=== PATIENT | female | born 1990 | race Caucasian/White ===

== ENCOUNTER 2018-09-21 21:49 | Observation (INO) ==
[2018-09-21] MEDS ORDERED: 0.9 % Sodium Chloride 1,000 ML IVC ONE ×2 (21:58→23:12)
[2018-09-21] MEDS ORDERED: Ibuprofen 800 MG TABLET PO ONE (22:00)
[2018-09-21] MEDS ORDERED: Isovue-370 500 ML BOTTLE IVP ONE (22:02)
--- NOTE | 2018-09-21 22:03 | Emergency Department Note ---
Overdose - [facility] Narrative Medical decision making narrative: Patient's evaluation in the emergency department demonstrates findings concerning for aspiration pneumonia versus bronchiolitis. Patient was noted to have an acute kidney injury, hyponatremia and hypokalemia. She was given IV fluids here in the ED, given potassium replacement and started on antibiotics with concern for aspiration pneumonia. The patient will be admitted for observation and further care. Patient family made aware and agrees to plan. No further questions or concerns noted. Patient accepted by Dr. To. - Lab Data Lab results reviewed: Yes I reviewed the patient's lab results. Result diagrams: 09/21/18 22:06 09/21/18 22:06 Lab Results 09/21/18 09/21/18 09/21/18 Range/Units 22:06 22:06 22:06 WBC 12.7 H (4.3-11.1) K/mcL RBC 5.64 H (3.82-4.97) M/mcL Hgb 15.9 H (11.5-15.4) g/dL Hct 45.5 H (35.3-44.9) % MCV 80.7 L (83.0-100.0) fL MCH 28.2 (28.0-33.3) pg MCHC 34.9 (31.6-35.5) g/dL RDW 13.1 (11.5-14.5) % Plt Count 229 (140-400) K/mcL MPV 10.9 (9.4-12.4) fL Immature Gran % 1.2 (0-4) % Seg Neutrophils % 83.3 % Lymphocytes % 5.9 % Monocytes % 9.1 % Eosinophils % 0.2 % Basophils % 0.3 % Neutrophils # 10.6 H (1.6-8.9) K/mcL Lymphocytes # 0.8 (0.6-4.6) K/mcL Monocytes # 1.2 (0.0-1.3) K/mcL Eosinophils # 0.0 (0.0-0.6) K/mcL Basophils # 0.0 (0.0-0.2) K/mcL Sodium 128 L (136-145) mEq/L Potassium 2.9 L (3.5-5.1) mEq/L Chloride 83 L (98-107) mEq/L Carbon Dioxide 29 (23-29) mEq/L BUN 20 (6-20) mg/dL Creatinine 1.27 H (0.60-1.20) mg/dL Est GFR ( Amer) 60 (> 60) Est GFR (Non-Af Amer) 49 L (> 60) BUN/Creatinine Ratio 16 (6-26) Glucose 108 H (70-105) mg/dL Calculated Osmolality 269 L (280-300) Lactic Acid 1.4 (0.5-2.2) mmol/L Calcium 9.5 (8.6-10.3) mg/dL Total Bilirubin 0.7 (0.3-1.0) mg/dL Direct Bilirubin 0.3 H (0.0-0.2) mg/dL Indirect Bilirubin 0.4 (0.0-1.2) mg/dL AST 60 H (13-39) Units/L ALT 71 H (7-52) Units/L Alkaline Phosphatase 83 (34-104) Units/L Troponin I < 0.03 (< 0.04) ng/mL Serum Total Protein 8.9 (6.4-8.9) g/dL Albumin 4.3 (3.5-5.7) g/dL Globulin 4.6 H (2.4-3.5) g/dL Albumin/Globulin Ratio 0.9 L (1.1-2.2) Lipase (11-82) Units/L Serum , Qual (Negative) Urine Color (Yellow) Urine Clarity (Clear) Urine pH (5.0-8.0) pH Units Ur Specific [place] (1.010-1.025) Urine Protein (Neg-Trace) mg/dL Urine Glucose (UA) (Normal) mg/dL Urine Ketones (Negative) mg/dL Urine Blood (Negative) Urine Nitrite (Negative) Urine Bilirubin (Negative) Urine Urobilinogen (Normal) mg/dL Ur Leukocyte Esterase (Negative) Urine Microscopic RBC (0-3) per hpf Urine Microscopic WBC (0-3) per hpf Ur Squamous Epith Cells (None-Few) per lpf Urine Bacteria (None-Few) per hpf Hyaline Casts (None-Few) per lpf Ur Culture Indicated? (NO) 09/21/18 09/21/18 09/22/18 Range/Units 22:06 22:18 00:33 WBC (4.3-11.1) K/mcL RBC (3.82-4.97) M/mcL Hgb (11.5-15.4) g/dL Hct (35.3-44.9) % MCV (83.0-100.0) fL MCH (28.0-33.3) pg MCHC (31.6-35.5) g/dL RDW (11.5-14.5) % Plt Count (140-400) K/mcL MPV (9.4-12.4) fL Immature Gran % (0-4) % Seg Neutrophils % % Lymphocytes % % Monocytes % % Eosinophils % % Basophils % % Neutrophils # (1.6-8.9) K/mcL Lymphocytes # (0.6-4.6) K/mcL Monocytes # (0.0-1.3) K/mcL Eosinophils # (0.0-0.6) K/mcL Basophils # (0.0-0.2) K/mcL Sodium (136-145) mEq/L Potassium (3.5-5.1) mEq/L Chloride (98-107) mEq/L Carbon Dioxide (23-29) mEq/L BUN (6-20) mg/dL Creatinine (0.60-1.20) mg/dL Est GFR ( Amer) (> 60) Est GFR (Non-Af Amer) (> 60) BUN/Creatinine Ratio (6-26) Glucose (70-105) mg/dL Calculated Osmolality (280-300) Lactic Acid (0.5-2.2) mmol/L Calcium (8.6-10.3) mg/dL Total Bilirubin (0.3-1.0) mg/dL Direct Bilirubin (0.0-0.2) mg/dL Indirect Bilirubin (0.0-1.2) mg/dL AST (13-39) Units/L ALT (7-52) Units/L Alkaline Phosphatase (34-104) Units/L Troponin I (< 0.04) ng/mL Serum Total Protein (6.4-8.9) g/dL Albumin (3.5-5.7) g/dL Globulin (2.4-3.5) g/dL Albumin/Globulin Ratio (1.1-2.2) Lipase 15 (11-82) Units/L Serum , Qual Negative (Negative) Urine Color Yellow (Yellow) Urine Clarity Clear (Clear) Urine pH 6.0 (5.0-8.0) pH Units Ur Specific [place] 1.028 H (1.010-1.025) Urine Protein 30 H (Neg-Trace) mg/dL Urine Glucose (UA) Normal (Normal) mg/dL Urine Ketones Trace H (Negative) mg/dL Urine Blood Trace H (Negative) Urine Nitrite Negative (Negative) Urine Bilirubin Negative (Negative) Urine Urobilinogen Normal (Normal) mg/dL Ur Leukocyte Esterase Negative (Negative) Urine Microscopic RBC 5-15 H (0-3) per hpf Urine Microscopic WBC 3-5 H (0-3) per hpf Ur Squamous Epith Cells Many H (None-Few) per lpf Urine Bacteria Few (None-Few) per hpf Hyaline Casts None Seen (None-Few) per lpf Ur Culture Indicated? NO (NO) - Radiology Data Radiology results reviewed: Yes I reviewed the patient's radiology results. Chest X-Ray 09/21/18 21:58 IMPRESSION: Subtle bilateral lung infiltrates on this portable study suspicious for pneumonia. A follow-up PA and lateral examination the chest is recommended. D/ / Rey Elias MD / Rey Elias MD Interpreting Provider: Rey Elias MD Chest/Abdomen/Pelvis CTA 09/21/18 22:02 IMPRESSION: Mostly dependent right lung and left lower lobe centrilobular nodules in a branching configuration with associated bronchial wall thickening, suggesting small airways disease/infectious bronchiolitis. Aspiration could be considered given history. Hyperenhancement of the adrenal glands and also probably the small bowel; findings could be related to hypoperfusion complex. Fatty infiltration of the liver. Splenomegaly. D/ / Ju Foster Cha, MD / Ju Foster Cha, MD Interpreting Provider: Ju Fsoter Cha, MD - EKG Data EKG attestation: Yes I reviewed and interpreted this EKG. EKG results narrative: Heart rate 159 beats for minute. Sinus tachycardia. No ST elevation but noted ST depression that is diffuse. Concern for demand ischemia. This is not present on previous EKG from every 2017. Overdose HPI - General Chief Complaint: ED Overdose Stated Complaint: OD Time Seen by Provider: 09/21/18 21:52 Source: patient, EMS Mode of arrival: EMS Limitations: no limitations Nursing Notes Reviewed: Yes Vital Signs Reviewed: Yes - History of Present Illness HPI Narrative: 28-year-old female with extensive history of IVDU, drug abuse and polysubstance, arrives to the emergency department after being found unresponsive. The patient was noted to have use clonazepam this morning. The patient suddenly used multiple doses of heroin. She was found unresponsive and administered Narcan by EMS. 4 mg intranasal. Patient quickly arose and woke up. She is alert and oriented upon arrival to the emergency department. Further questioning the patient was noted to express abdominal pain over the course the past few days and feel ill. She is noted to be tachycardic with a heart rate at 159. The patient denies any other complaints at this time. - Related Data Allergies Allergy/AdvReac Type Severity Reaction Status Date / Time Amoxicillin [From Augmentin] AdvReac Seizure Verified 09/05/17 17:21 clavulanic acid AdvReac Seizure Verified 09/05/17 17:21 [From Augmentin] All systems ED: reviewed and negative except as stated. Constitutional: Reports: fever, chills, weakness ENT ED: Denies: dysphagia Cardiovascular: Denies: chest pain Respiratory: Denies: dyspnea Gastrointestinal: Reports: abdominal pain, nausea. Denies: vomiting, diarrhea, constipation, hematemesis, melena, hematochezia Genitourinary: Denies: urgency, dysuria, discharge Musculoskeletal: Denies: back pain, neck pain Integumentary: Reports: lesions. Denies: rash Neurological: Denies: headache Past Medical History - Past Medical History Attestation: Yes The following information was validated with the patient. 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 - Social History Smoking Status: Current every day smoker Smokeless Tobacco Status: No Alcohol use: Reports: none Drug use: Reports: marijuana, methamphetamine, IV Drug Use, prescription drug abuse, other Physical Exam - General Limitations: no limitations General appearance: alert, in no apparent distress - Head Head exam: atraumatic, normocephalic, normal inspection - Eye Eye exam: Present: normal appearance, PERRL, EOMI - ENT ENT exam: normal exam, normal oropharynx, mucous membranes moist - Neck Neck exam: Present: normal inspection, full ROM, trachea midline - Chest Chest inspection: Present: normal inspection, symmetric chest wall rise - Respiratory Respiratory exam: Present: normal lung sounds bilaterally - Cardiovascular Cardiovascular exam: Present: normal rhythm, tachycardia, normal heart sounds - Abdominal Exam Abdominal exam: Present: soft, tenderness (diffuse). Absent: Non-Tender, distention, guarding, rebound, rigidity - Extremities Exam Extremities exam: Present: normal inspection, full ROM. Absent: tenderness, pedal edema - Neurological Exam Neurological exam: Present: alert, oriented X3 - Skin Skin exam: Present: warm, dry, other (small lesions on bilateral UE) Course Vital Signs Temperature 102.7 F H 09/21/18 21:51 Pulse Rate 164 09/21/18 21:51 Respiratory Rate 20 09/21/18 21:51 Blood Pressure 103/76 09/21/18 21:51 O2 Sat by Pulse Oximetry 98 09/21/18 21:51 Temperature 99.8 F H 09/21/18 23:47 Pulse Rate 146 09/21/18 23:21 Respiratory Rate 18 09/21/18 23:21 Blood Pressure 109/86 09/21/18 23:21 O2 Sat by Pulse Oximetry 94 09/21/18 23:21 Oxygen Delivery Oxygen Delivery Room Air Disposition Clinical Impression: Febrile illness, Acute kidney injury, Hypokalemia, Hyponatremia Heroin overdose Qualifiers: Encounter type: initial encounter Injury intent: accidental or unintentional Qualified Code(s): T40.1X1A - Poisoning by heroin, accidental (unintentional), initial encounter Disposition: Admitted As Inpatient Condition: Serious Referrals: NONE,PCP [Primary Care Provider] - Forms: ED Satisfaction Letter Time of Disposition: 00:54
--- NOTE | 2018-09-21 22:09 | Emergency Department Note ---
Disposition Clinical Impression: Heroin overdose, Febrile illness, Acute kidney injury, Hypokalemia, Hyponatremia Disposition: Admitted As Inpatient Condition: Serious Forms: ED Satisfaction Letter General Adult HPI - General Chief complaint: ED Overdose Stated complaint: OD Time Seen by Provider: 09/21/18 21:52 Source: patient, EMS Mode of arrival: EMS Limitations: no limitations - History of Present Illness Pain Scale: 0 - Related Data Allergies Allergy/AdvReac Type Severity Reaction Status Date / Time Amoxicillin [From Augmentin] AdvReac Seizure Verified 09/05/17 17:21 clavulanic acid AdvReac Seizure Verified 09/05/17 17:21 [From Augmentin] Constitutional: Reports: fever, chills, weakness ENT ED: Denies: dysphagia Cardiovascular: Denies: chest pain Respiratory: Denies: dyspnea Gastrointestinal: Reports: abdominal pain, nausea. Denies: vomiting, diarrhea, constipation, hematemesis, melena, hematochezia Genitourinary: Denies: urgency, dysuria, discharge Musculoskeletal: Denies: back pain, neck pain Integumentary: Reports: lesions. 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 - Social History Smoking Status: Current every day smoker Smokeless Tobacco Status: No Alcohol use: Reports: none Drug use: Reports: marijuana, methamphetamine, IV Drug Use, prescription drug abuse, other Physical Exam - General Limitations: no limitations General appearance: alert, in no apparent distress Course Vital Signs Temperature 102.7 F H 09/21/18 21:51 Pulse Rate 164 09/21/18 21:51 Respiratory Rate 20 09/21/18 21:51 Blood Pressure 103/76 09/21/18 21:51 O2 Sat by Pulse Oximetry 98 09/21/18 21:51 Temperature 99.8 F H 09/21/18 23:47 Pulse Rate 146 09/21/18 23:21 Respiratory Rate 18 09/21/18 23:21 Blood Pressure 109/86 09/21/18 23:21 O2 Sat by Pulse Oximetry 94 09/21/18 23:21 Oxygen Delivery Oxygen Delivery Room Air Medical Decision Making - MDM Narrative Medical decision making narrative: Patient will be admitted. CTs show possible bronchiolitis versus aspiration p neumonia. We have ordered IV antibiotics. She is hyponatremic and hypokalemic with an acute kidney injury. We have ordered IV fluids. She will be admitted. - Medical Records Medical records reviewed: Yes I reviewed the patient's medical records. - Lab Data Lab results reviewed: Yes I reviewed the patient's lab results. Result diagrams: 09/21/18 22:06 09/21/18 22:06 Lab Results 09/21/18 09/21/18 09/21/18 Range/Units 22:06 22:06 22:06 WBC 12.7 H (4.3-11.1) K/mcL RBC 5.64 H (3.82-4.97) M/mcL Hgb 15.9 H (11.5-15.4) g/dL Hct 45.5 H (35.3-44.9) % MCV 80.7 L (83.0-100.0) fL MCH 28.2 (28.0-33.3) pg MCHC 34.9 (31.6-35.5) g/dL RDW 13.1 (11.5-14.5) % Plt Count 229 (140-400) K/mcL MPV 10.9 (9.4-12.4) fL Immature Gran % 1.2 (0-4) % Seg Neutrophils % 83.3 % Lymphocytes % 5.9 % Monocytes % 9.1 % Eosinophils % 0.2 % Basophils % 0.3 % Neutrophils # 10.6 H (1.6-8.9) K/mcL Lymphocytes # 0.8 (0.6-4.6) K/mcL Monocytes # 1.2 (0.0-1.3) K/mcL Eosinophils # 0.0 (0.0-0.6) K/mcL Basophils # 0.0 (0.0-0.2) K/mcL Sodium 128 L (136-145) mEq/L Potassium 2.9 L (3.5-5.1) mEq/L Chloride 83 L (98-107) mEq/L Carbon Dioxide 29 (23-29) mEq/L BUN 20 (6-20) mg/dL Creatinine 1.27 H (0.60-1.20) mg/dL Est GFR ( Amer) 60 (> 60) Est GFR (Non-Af Amer) 49 L (> 60) BUN/Creatinine Ratio 16 (6-26) Glucose 108 H (70-105) mg/dL Calculated Osmolality 269 L (280-300) Lactic Acid 1.4 (0.5-2.2) mmol/L Calcium 9.5 (8.6-10.3) mg/dL Total Bilirubin 0.7 (0.3-1.0) mg/dL Direct Bilirubin 0.3 H (0.0-0.2) mg/dL Indirect Bilirubin 0.4 (0.0-1.2) mg/dL AST 60 H (13-39) Units/L ALT 71 H (7-52) Units/L Alkaline Phosphatase 83 (34-104) Units/L Troponin I < 0.03 (< 0.04) ng/mL Serum Total Protein 8.9 (6.4-8.9) g/dL Albumin 4.3 (3.5-5.7) g/dL Globulin 4.6 H (2.4-3.5) g/dL Albumin/Globulin Ratio 0.9 L (1.1-2.2) Lipase (11-82) Units/L Serum , Qual (Negative) 09/21/18 09/21/18 Range/Units 22:06 22:18 WBC (4.3-11.1) K/mcL RBC (3.82-4.97) M/mcL Hgb (11.5-15.4) g/dL Hct (35.3-44.9) % MCV (83.0-100.0) fL MCH (28.0-33.3) pg MCHC (31.6-35.5) g/dL RDW (11.5-14.5) % Plt Count (140-400) K/mcL MPV (9.4-12.4) fL Immature Gran % (0-4) % Seg Neutrophils % % Lymphocytes % % Monocytes % % Eosinophils % % Basophils % % Neutrophils # (1.6-8.9) K/mcL Lymphocytes # (0.6-4.6) K/mcL Monocytes # (0.0-1.3) K/mcL Eosinophils # (0.0-0.6) K/mcL Basophils # (0.0-0.2) K/mcL Sodium (136-145) mEq/L Potassium (3.5-5.1) mEq/L Chloride (98-107) mEq/L Carbon Dioxide (23-29) mEq/L BUN (6-20) mg/dL Creatinine (0.60-1.20) mg/dL Est GFR ( Amer) (> 60) Est GFR (Non-Af Amer) (> 60) BUN/Creatinine Ratio (6-26) Glucose (70-105) mg/dL Calculated Osmolality (280-300) Lactic Acid (0.5-2.2) mmol/L Calcium (8.6-10.3) mg/dL Total Bilirubin (0.3-1.0) mg/dL Direct Bilirubin (0.0-0.2) mg/dL Indirect Bilirubin (0.0-1.2) mg/dL AST (13-39) Units/L ALT (7-52) Units/L Alkaline Phosphatase (34-104) Units/L Troponin I (< 0.04) ng/mL Serum Total Protein (6.4-8.9) g/dL Albumin (3.5-5.7) g/dL Globulin (2.4-3.5) g/dL Albumin/Globulin Ratio (1.1-2.2) Lipase 15 (11-82) Units/L Serum , Qual Negative (Negative) - Radiology Data Radiology results reviewed: Yes I reviewed the patient's radiology results. Critical Care Time Critical Care Time: Yes Total Critical Care Time: 30 Attestation: Critical care time of 30 minutes spent in medical management of multiple medical problems with overdose of heroin as well as acute kidney injury as well as poss ible pneumonia from aspiration versus a bronchiolitis. Attestation Statement - Attestation Attestation: I examined this patient and my medical decision-making was reviewed with the Resident Physician. I agree with the documented findings, disposition and treatment plan as described except to the extent set forth below. 28yo F here for overdose. OD on heroin earlier. squad gave intranasal narcan. Patient woke up after the Narcan. However, she was found to have a fever of 102. Patient also took 3 Klonopin tablets this morning. She does have a long history of opiate addiction. She has got multiple track fuentes in the left arm specifically to the left antecubital region. Concerns are received with the fevers so we need to work her up for possible septic emboli or endocarditis or any other straightforward infection.
[2018-09-21 22:26] LABS: Basophils % 0.3 %; Eosinophils % 0.2 %; Hematocrit 45.5 % (35.3-44.9); Hemoglobin 15.9 g/dL (11.5-15.4); Immature Granulocytes % 1.2 % (0-4); Lymphocytes # 0.8 K/mcL (0.6-4.6); Lymphocytes % 5.9 %; Mean Corpuscular HGB Conc 34.9 g/dL (31.6-35.5); Mean Corpuscular Hemoglobin 28.2 pg (28.0-33.3); Mean Corpuscular Volume 80.7 fL (83.0-100.0); Mean Platelet Volume 10.9 fL (9.4-12.4); Monocytes # 1.2 K/mcL (0.0-1.3); Monocytes % 9.1 %; Neutrophils # 10.6 K/mcL (1.6-8.9); Platelet Count 229 K/mcL (140-400); Red Blood Count 5.64 M/mcL (3.82-4.97); Red Cell Distribution Width 13.1 % (11.5-14.5); Segmented Neutrophils % 83.3 %
[2018-09-21 22:46] LABS: Alanine Aminotransferase 71 Units/L (7-52); Albumin 4.3 g/dL (3.5-5.7); Albumin/Globulin Ratio 0.9 (1.1-2.2); Alkaline Phosphatase 83 Units/L (34-104); Aspartate Amino Transferase 60 Units/L (13-39); BUN/Creatinine Ratio 16 (6-26); Bilirubin,Direct 0.3 mg/dL (0.0-0.2); Bilirubin,Indirect 0.4 mg/dL (0.0-1.2); Bilirubin,Total 0.7 mg/dL (0.3-1.0); Blood Urea Nitrogen 20 mg/dL (6-20); Calcium 9.5 mg/dL (8.6-10.3); Carbon Dioxide 29 mEq/L (23-29); Chloride 83 mEq/L (98-107); Globulin 4.6 g/dL (2.4-3.5); Glucose 108 mg/dL (70-105); Osmolality,Calculated 269 (280-300); Potassium 2.9 mEq/L (3.5-5.1); Sodium 128 mEq/L (136-145); Total Protein 8.9 g/dL (6.4-8.9); Troponin I < 0.03 ng/mL (< 0.04); eGFR For Non-African Americans 49 (> 60)
[2018-09-22] MEDS ORDERED: Cefepime HCl 1,000 MG in Water for inj. (sterile) 20 ML 10 ML IVP STA (00:13)
[2018-09-22 00:44] LABS: Bilirubin,Urine Negative (Negative); Blood,Urine Trace (Negative); Clarity,Urine Clear (Clear); Color,Urine Yellow (Yellow); Glucose,Urine (UA) Normal (Normal); Ketones,Urine Trace mg/dL (Negative); Leukocyte Esterase,Urine Negative (Negative); Nitrite,Urine Negative (Negative); Protein,Urine 30 mg/dL (Neg-Trace); Specific Gravity,Urine 1.028 (1.010-1.025); Urobilinogen,Urine Normal (Normal)
[2018-09-22 00:46] LABS: Bacteria,Urine Few per hpf (None-Few); Hyaline Casts,Urine None Seen per lpf (None-Few); Squamous Epithelial Cell,Urine Many per lpf (None-Few)
[2018-09-22] MEDS ORDERED: Naloxone 0.4 MG/ML INJ IVP PRN (01:43)
--- NOTE | 2018-09-22 01:45 | Internal Med History&Physical ---
<Ivan Shen S - Last Filed: 09/22/18 04:14> Date of Encounter: 09/22/18 Time of Encounter: 01:44 Internal Medicine - H&P: HPI Chief complaint: overdose on heroin Admitted From: Home Plans for Post Hospital Care: Home History of present illness: Ms. Chavez is a 28 year old female with PMH of IVDU. She overdosed this morning on klonopin and heroin. She states she took 3 klonopins and a "few balls." She was found down by her mom who called EMS. She was given narcan and brought to the ER. She has also been having increasing cough, fevers and chills x 3 weeks. She states she just hasn't been feeling right. She denies any chest pain but has c/o headaches and palpiltations. She can "feel her heart beating" in her chest. She does feel feverish but hasn't taken her temperature. She denies any saddle anesthesia, loss of bowel and bladder, or spinal pain. She denies any injection into the toe webbing. She uses her left antecubital fossa. On evaluation in the ER the pt was found to have Subtle bilateral lung infiltrates on this portable study suspicious for pneumonia on CXR and CT scan showed Mostly dependent right lung and left lower lobe centrilobular nodules in a branching configuration with associated bronchial wall thickening, suggesting small airways disease/infectious bronchiolitis. She was also found to be febrile, with tacycardia and an elevated white count. She was given a dose of vancomycin and cefepime in the ER. Dr Enamorado is the accepting physician. Past Med Surg Social Fam HX - Past Medical History Medical history: hepatitis Psychiatric history: anxiety, depression, panic disorder - Social History Smoking Status: Current every day smoker Smokeless Tobacco Status: No Alcohol use: none Drug use: marijuana, methamphetamine, IV Drug Use, prescription drug abuse, other Internal Medicine - H&P: Meds Allergy/AdvReac Type Severity Reaction Status Date / Time Amoxicillin [From Augmentin] AdvReac Seizure Verified 09/05/17 17:21 clavulanic acid AdvReac Seizure Verified 09/05/17 17:21 [From Augmentin] All Systems PM: A 10-system review of systems was performed and is negative for pertinent findings except as documented above in the HPI. - Constitutional Constitutional: chills, fatigue, fever(s) - EENT Eyes: no blurry vision, no change in vision Nose, mouth and throat: no dental pain, no mouth lesions - Cardiovascular Cardiovascular ROS IM: palpitations, no chest pain, no dyspnea, no dyspnea on exertion - Respiratory Respiratory: cough, chest congestion, excessive phlegm production, no hemoptysis - Gastrointestinal Gastrointestinal: abdominal pain, nausea, vomiting, no diarrhea - Musculoskeletal Musculoskeletal ROS IM: no arthralgias - Integumentary Integumentary IM: sores - Neurological Neurological ROS: weakness - Endocrine Endocrine IM: fatigue - Hematologic/Lymphatic Hematologic/Lymphatic: no easy bleeding, no easy bruising - Constitutional Vitals: Temp Pulse Resp BP Pulse Ox 99.8 F H 146 18 109/86 94 09/21/18 23:47 09/21/18 23:21 09/21/18 23:21 09/21/18 23:21 09/21/18 23:21 General appearance: Present: cooperative, A&O X 3, no acute distress Exam: x - Head Head exam: Present: atraumatic, normocephalic - Eye Eye exam: Present: sclera anicteric - ENT ENT exam: Present: mucous membranes moist - Expanded ENT Exam Mouth exam: Present: normal external inspection, tongue normal. Absent: drooling Teeth exam: Present: fractured tooth # (left molar) - Neck Neck exam general surgery: Present: trachea midline - Respiratory Respiratory exam: Present: decreased breath sounds, rhonchi. Absent: accessory muscle use, rales, respiratory distress, stridor, wheezes, tachypnea - Expanded Respiratory Exam Location: decreased breath sounds: Left, Right, Upper, Lower, rhonchi: Left, Right, Upper, Lower - GI/Abdominal GI/Abdominal exam: Present: soft, no peritoneal signs. Absent: tenderness - Extremities Exam Extremities exam: Present: normal capillary refill, normal inspection, warm. Absent: pedal edema, tenderness Additional comments: no signs of janeway lesions, osler nodules, splinter hemorrhages - Back Exam Back exam: Present: normal inspection. Absent: rash noted, tenderness - Neurological Exam Neurological exam: Present: alert, oriented X3, no focal deficits - Psychiatric Psychiatric exam: Present: anxious - Skin Skin exam: Present: dry, warm Additional comments: left antecubital fossa has large area of scar tissue, track fuentes - no tract fuentes in between the toes Internal Med - H&P Results - Labs CBC & Chem 7: 09/22/18 03:34 09/21/18 22:06 Labs: Short CBC 09/21/18 Range/Units 22:06 WBC 12.7 H (4.3-11.1) K/mcL Hgb 15.9 H (11.5-15.4) g/dL Hct 45.5 H (35.3-44.9) % Plt Count 229 (140-400) K/mcL Neutrophils # 10.6 H (1.6-8.9) K/mcL BMP 09/21/18 22:06 Sodium 128 L Potassium 2.9 L Chloride 83 L Carbon Dioxide 29 BUN 20 Creatinine 1.27 H Glucose 108 H Calcium 9.5 Cardiac Enzymes 09/21/18 Range/Units 22:06 Troponin I < 0.03 (< 0.04) ng/mL Liver Function 09/21/18 Range/Units 22:06 Total Bilirubin 0.7 (0.3-1.0) mg/dL Direct Bilirubin 0.3 H (0.0-0.2) mg/dL AST 60 H (13-39) Units/L ALT 71 H (7-52) Units/L Alkaline Phosphatase 83 (34-104) Units/L Albumin 4.3 (3.5-5.7) g/dL Urine 09/22/18 Range/Units 00:33 Urine Color Yellow (Yellow) Urine Clarity Clear (Clear) Urine pH 6.0 (5.0-8.0) pH Units Ur Specific [place] 1.028 H (1.010-1.025) Urine Protein 30 H (Neg-Trace) mg/dL Urine Glucose (UA) Normal (Normal) mg/dL - Impressions ITS Impressions Chest X-Ray 09/21/18 21:58 IMPRESSION: Subtle bilateral lung infiltrates on this portable study suspicious for pneumonia. A follow-up PA and lateral examination the chest is recommended. D/ / Rey Elias MD / Rey Elias MD Interpreting Provider: Rey Elias MD Chest/Abdomen/Pelvis CTA 09/21/18 22:02 IMPRESSION: Mostly dependent right lung and left lower lobe centrilobular nodules in a branching configuration with associated bronchial wall thickening, suggesting small airways disease/infectious bronchiolitis. Aspiration could be considered given history. Hyperenhancement of the adrenal glands and also probably the small bowel; findings could be related to hypoperfusion complex. Fatty infiltration of the liver. Splenomegaly. D/ / Ju Foster Cha, MD / Ju Foster Cha, MD Interpreting Provider: Ju Foster Cha, MD - Assessment and plan (1) Sepsis Current Visit: Yes Status: Acute Assessment and plan: Pt with hx of IVDU and increasing cough, fevers/chills x 3 weeks - overdosed this afternoon and was brought to ER via EMS - narcan administered en route - pt given dose of cefepime and vancomycin in the ER Meets SIRS criteria for HR 146, RR 22, WBC 12.7 and t max of 102.7 - source of infxn likely aspiration pneumonia vs infectious bronchiolitis Pt has pre-disposing factors that make her suspectible for infective endocarditis, including IVDU. She is febrile. - as of now, she only meets 2 minor criteria for Morelos's criteria for IE - no Osler's nodules, splinter hemorrhages or Janeway lesions noted CXR in ER showed bilateral lung infiltrates on this portable study suspicious for pneumonia. CT scan in the ER showed - right lung and left lower lobe centrilobular nodules in a branching configuration with associated bronchial wall thickening, suggesting small airways disease/infectious bronchiolitis. - Aspiration could be considered given history. Pt shoots up into left AC, the area does have an area of scar tissue from chronic IVDU however appears noninfected, no flucuance can be palpated - checked toe webbing for any infected tract fuentes, none seen Pt has chipped tooth (molar) on the left side, does not appear to be draining or infected Plan: - blood cx pending - continue abx to cover for aspiration pneumonia/CAP vs infectious endocarditis vancomycin to cover for possible MRSA, zosyn to cover anaerobes - ECHO pending - continue telemetry monitoring - cbc/bmp in AM - duonebs Qualifiers: Sepsis type: sepsis due to unspecified organism Qualified Code(s): A41.9 - Sepsis, unspecified organism (2) IVDU (intravenous drug user) Current Visit: Yes Status: Acute Assessment and plan: Chronic, last day of use this AM. - SW consulted (3) Tobacco abuse Current Visit: Yes Status: Acute Assessment and plan: Counsled. NRT ordered. (4) Heroin overdose Current Visit: Yes Status: Acute Assessment and plan: Pt has chronic hx of IVDU. Qualifiers: Encounter type: initial encounter Injury intent: accidental or unintentional Qualified Code(s): T40.1X1A - Poisoning by heroin, accidental (unintentional), initial encounter (5) Acute kidney injury Current Visit: Yes Status: Acute Assessment and plan: Creatinine 1.27 on admission, last creatinine was 0.66 (08/2017) - likely pre-renal secondary to hypovolemia/dehydration Plan: - continue IVF - avoid nephrotoxins - monitor bmp (6) Hypokalemia Current Visit: Yes Status: Acute Assessment and plan: Likely secondary to vomiting - potassium 2.9 on admission - replaced in ER - monitor electrolyes (7) Hyponatremia Current Visit: Yes Status: Acute Assessment and plan: Sodium 128 - likely secondary to vomiting, dehydration, poor PO intake - pt receiving 2L of 0.9% NS bolus in the ER - monitor electrolyes (8) DVT prophylaxis Current Visit: Yes Status: Acute Assessment and plan: sq heparin (9) Pneumonia Current Visit: Yes Status: Acute Assessment and plan: See plan as above for sepsis. Qualifiers: Pneumonia type: due to unspecified organism Laterality: unspecified lat erality Lung location: unspecified part of lung Qualified Code(s): J18.9 - Pneumonia, unspecified organism - Time Spent With Patient Total time spent is greater than 50% in coordination of care (as documented) at patient's floor/unit and/or counseling patient: less than 15 minutes <Glenn To - Last Filed: 09/22/18 05:22> Date of Encounter: 09/22/18 Internal Medicine - H&P: HPI History of present illness: Ms. Chavez is a 28 year old female All Systems PM: A 10-system review of systems was performed and is negative for pertinent findings except as documented above in the HPI. - Constitutional Vitals: Temp Pulse Resp BP Pulse Ox 99.8 F H 146 18 113/92 94 09/21/18 23:47 09/21/18 23:21 09/22/18 02:28 09/22/18 02:28 09/21/18 23:21 Internal Med - H&P Results - Labs CBC & Chem 7: 09/22/18 03:34 09/22/18 03:34 Labs: Short CBC 09/21/18 09/22/18 Range/Units 22:06 03:34 WBC 12.7 H 11.5 H (4.3-11.1) K/mcL Hgb 15.9 H 14.2 D (11.5-15.4) g/dL Hct 45.5 H 42.2 (35.3-44.9) % Plt Count 229 181 (140-400) K/mcL Neutrophils # 10.6 H (1.6-8.9) K/mcL BMP 09/21/18 09/22/18 22:06 03:34 Sodium 128 L 135 L Potassium 2.9 L 3.9 D Chloride 83 L 94 L Carbon Dioxide 29 32 H BUN 20 16 Creatinine 1.27 H 0.94 Glucose 108 H 114 H Calcium 9.5 8.7 Cardiac Enzymes 09/21/18 Range/Units 22:06 Troponin I < 0.03 (< 0.04) ng/mL Liver Function 09/21/18 Range/Units 22:06 Total Bilirubin 0.7 (0.3-1.0) mg/dL Direct Bilirubin 0.3 H (0.0-0.2) mg/dL AST 60 H (13-39) Units/L ALT 71 H (7-52) Units/L Alkaline Phosphatase 83 (34-104) Units/L Albumin 4.3 (3.5-5.7) g/dL Urine 09/22/18 Range/Units 00:33 Urine Color Yellow (Yellow) Urine Clarity Clear (Clear) Urine pH 6.0 (5.0-8.0) pH Units Ur Specific [place] 1.028 H (1.010-1.025) Urine Protein 30 H (Neg-Trace) mg/dL Urine Glucose (UA) Normal (Normal) mg/dL - Impressions ITS Impressions Chest X-Ray 09/21/18 21:58 IMPRESSION: Subtle bilateral lung infiltrates on this portable study suspicious for pneumonia. A follow-up PA and lateral examination the chest is recommended. D/ / Rey Elias MD / Rey Elias MD Interpreting Provider: Rey Elias MD Chest/Abdomen/Pelvis CTA 09/21/18 22:02 IMPRESSION: Mostly dependent right lung and left lower lobe centrilobular nodules in a branching configuration with associated bronchial wall thickening, suggesting small airways disease/infectious bronchiolitis. Aspiration could be considered given history. Hyperenhancement of the adrenal glands and also probably the small bowel; findings could be related to hypoperfusion complex. Fatty infiltration of the liver. Splenomegaly. D/ / Ju Foster Cha, MD / Ju Foster Cha, MD Interpreting Provider: Ju Foster Cha, MD - Time Spent With Patient Total time spent is greater than 50% in coordination of care (as documented) at patient's floor/unit and/or counseling patient: - Attending Attestation I saw and evaluated the patient. I reviewed the residents note, performed my own physical examination and agree with findings and plan as documented in the residents note. Patient seen and examined on 09/22/18. Patient presented to the emergency room unresponsive found by her mother after apparently overdosing on heroin and other drugs. Patient was resuscitated in the field and evaluated in the emergency room. Urine drug screen not completed in the emergency room as patient admitted to heroin and benzo use. Further blood work showed electrolyte abnormalities including hypon atremia hypokalemia and an iron deficiency. Patient suspected to have aspiration pneumonia as well as likely endocarditis possibly. Upon arrival to the medical floor, patient decided she wanted to leave AGAINST MEDICAL ADVICE. I came to the patient's room and discussed with her that she has multiple medical problems, any of which could be potentially lethal. She stated that she does want to go home, sleep in her own bed and take a shower. She then said she planned on coming back later in the morning. She was not concerned about the possibility of , because "I am only going to be gone a couple of hours." I then stated to her that she could take a shower here in the hospital, but she found this suggestion unfavorable because she does not like the kind of shampoo that would be available to her. She signed AMA paperwork and left the hospital prior to my physical exam. She was oriented, and capable of making medical decisions. Patient's mother was at bedside, and while she did not agree with the patient leaving the hospital she accepted her decision. Nursing removed IV access prior to her departure.
[2018-09-22] MEDS ORDERED: 0.9 % Sodium Chloride 1,000 ML IVC SCH (02:00)
[2018-09-22 02:30] VITALS: BP 113/92
[2018-09-22 03:56] LABS: Hematocrit 42.2 % (35.3-44.9); Hemoglobin 14.2 g/dL (11.5-15.4); Mean Corpuscular HGB Conc 33.6 g/dL (31.6-35.5); Mean Corpuscular Hemoglobin 28.6 pg (28.0-33.3); Mean Corpuscular Volume 85.1 fL (83.0-100.0); Mean Platelet Volume 10.5 fL (9.4-12.4); Platelet Count 181 K/mcL (140-400); Red Blood Count 4.96 M/mcL (3.82-4.97); Red Cell Distribution Width 13.4 % (11.5-14.5)
[2018-09-22] MEDS ORDERED: Ipratropium/Albuterol Neb 3 ML IH SCH (04:00)
[2018-09-22] MEDS ORDERED: Aminoglycoside Consult 1 EACH MC ONE (04:09)
[2018-09-22 04:23] LABS: BUN/Creatinine Ratio 17 (6-26); Blood Urea Nitrogen 16 mg/dL (6-20); Calcium 8.7 mg/dL (8.6-10.3); Carbon Dioxide 32 mEq/L (23-29); Chloride 94 mEq/L (98-107); Glucose 114 mg/dL (70-105); Osmolality,Calculated 282 (280-300); Potassium 3.9 mEq/L (3.5-5.1); Sodium 135 mEq/L (136-145); eGFR For Non-African Americans > 60 (> 60)
[2018-09-22] MEDS ORDERED: *HR* Heparin 5,000 UNIT/ML VIAL SQ SCH (06:00)
[2018-09-22] MEDS ORDERED: Piperacillin/Tazobactam 3.375 GM in 0.9 % Sodium Chloride Mini Bag 100 ML IVPB SCH (08:00)
[2018-09-22] MEDS ORDERED: Nicotine 7 MG PATCH.TD24 TD SCH (09:00)
--- NOTE | 2018-09-22 20:51 | Electrocardiograph Report ---
[address] [place], [place] [address] Test Date: 2018-09-21 Pat Name: Ladonna Chavez Department: [id number] Room: 2A71 Gender: F Rails Developer: : 1990 Requested By: Juan Shook Order Number: [id number] Reading MD: Naveen Quintero Measurements Intervals [place] Rate: 159 P: 73 NC: 76 QRS: 113 QRSD: 83 T: 56 QT: 343 QTc: 558 Interpretive Statements Limb leads reversal Sinus tachycardia Borderline repolarization abnormality Prolonged QT interval Electronically Signed On 09-22-2018 20:49:21 EST by Naveen Quintero
== END 2018-09-22 04:10 | disposition left against medical advice (07) ==
LOC: EMEROOARM 21:49 → 2ANU 21:49
PROVIDERS: ADMIT Family Medicine; ATTEND Family Medicine

== ENCOUNTER 2019-01-18 14:34 | Inpatient (IN) ==
[~2019-01-18 14:34] MED LIST: Aminoglycoside Consult 1 EACH MC ONE
[2019-01-18] MEDS ORDERED: 0.9 % Sodium Chloride 1,000 ML IVC ONE ×2 (15:02→16:17)
--- NOTE | 2019-01-18 15:27 | Emergency Department Note ---
Disposition Clinical Impression: Cellulitis Qualifiers: Site of cellulitis: extremity Site of cellulitis of extremity: axilla Laterality: right Qualified Code(s): L03.111 - Cellulitis of right axilla Sepsis Qualifiers: Sepsis type: sepsis due to unspecified organism Qualified Code(s): A41.9 - Sepsis, unspecified organism Disposition: Admitted As Inpatient Referrals: NONE,PCP [Primary Care Provider] - Forms: ED Satisfaction Letter Time of Disposition: 16:52 General Adult HPI - General Chief complaint: ED Skin/Abscess/Foreign Body Stated complaint: "Cellulitis"/abscess under arm Time Seen by Provider: 01/18/19 14:48 Source: patient, family Mode of arrival: ambulatory Limitations: no limitations Nursing Notes Reviewed: Yes Vital Signs Reviewed: Yes - History of Present Illness HPI Narrative: 28 yo female with history of IV drug abuse presents the emergency department with cellulitis in her right armpit. Patient states the last time she used IV drugs for several weeks ago. She noticed 3 days ago that she had a bump in her right armpit and thought it was an ingrown hair and has been trying to drain the area since then. Today the area became exquisitely more tender and red and she came to the emergency department for further evaluation. She has had cellulitis before and has needed antibiotics. She also complains of some shortness of breath and wheezing which has been going on for several months. She otherwise has no acute complaints at this time and denies chest pain, abdominal pain, nausea and vomiting, diarrhea, urinary tract symptoms. Pain Scale: 8 - Related Data Allergies Allergy/AdvReac Type Severity Reaction Status Date / Time Amoxicillin [From Augmentin] AdvReac Seizure Verified 09/05/17 17:21 clavulanic acid AdvReac Seizure Verified 09/05/17 17:21 [From Augmentin] All systems ED: reviewed and negative except as stated. Review of Systems: As Per HPI Constitutional: Reports: chills. Denies: weakness Cardiovascular: Reports: dyspnea on exertion. Denies: chest pain, palpitations Respiratory: Reports: cough, dyspnea, wheezes. Denies: hemoptysis, sputum production Gastrointestinal: Denies: abdominal pain, nausea, vomiting, diarrhea Genitourinary: Denies: dysuria, hematuria Musculoskeletal: Denies: back pain, neck pain Integumentary: Reports: rash, lesions Neurological: Denies: headache Past Medical History - Past Medical History Attestation: Yes The following information was validated with the patient. Source: patient Medical history: Reports: hepatitis, other Psychiatric history: Reports: anxiety, depression, panic disorder INSURANCE ASSISTANT history: Reports: no INSURANCE ASSISTANT history - Social History Smoking Status: Current every day smoker Smokeless Tobacco Status: No Alcohol use: Reports: none Drug use: Reports: marijuana, methamphetamine, IV Drug Use, prescription drug abuse, other Physical Exam - General Limitations: no limitations General appearance: alert, in distress (mild) - Head Head exam: atraumatic, normocephalic - Eye Eye exam: Present: normal appearance, EOMI - ENT ENT exam: normal exam, mucous membranes moist - Neck Neck exam: Present: normal inspection. Absent: tenderness, lymphadenopathy - Chest Chest inspection: Present: normal inspection. Absent: tenderness, rash - Respiratory Respiratory exam: Present: wheezes, other (rhonchi in all lung singh) - Cardiovascular Cardiovascular exam: Present: normal rhythm, tachycardia - Abdominal Exam Abdominal exam: Present: soft, Non-Tender. Absent: distention, guarding, rebound, rigidity - Extremities Exam Extremities exam: Present: normal inspection. Absent: tenderness, pedal edema - Neurological Exam Neurological exam: Present: alert, oriented X3 - Psychiatric Psychiatric exam: Present: normal affect, normal mood - Skin Skin exam: Present: other (Ingrown hair follicle in the right armpit with surrounding cellulitis. The area looks as though it has crusted over but there is minimal fluctuance palpable underneath. Area is exquisitely tender to touch.) Course Vital Signs Temperature 100.9 F H 01/18/19 14:40 Pulse Rate 130 01/18/19 14:40 Respiratory Rate 20 01/18/19 14:40 Blood Pressure 133/73 01/18/19 14:40 O2 Sat by Pulse Oximetry 100 01/18/19 14:40 Temperature 101.8 F H 01/18/19 16:16 Pulse Rate 129 01/18/19 16:16 Respiratory Rate 22 01/18/19 16:16 Blood Pressure 133/88 01/18/19 16:16 O2 Sat by Pulse Oximetry 98 01/18/19 16:16 Oxygen Delivery Oxygen Delivery Room Air Procedures - Abscess I/D Consent obtained: verbal consent Site: upper extremity Side (if applicable): right Local Anesthetic: lidocaine 1% Amount of Anesthesia Used (mL): 6 Technique: incised with #11 blade Amount of fluid: 5 Irrigation: No Packing used?: none Complications: pain, bleeding Medical Decision Making - [facility] Narrative Medical decision making narrative: Patient presents with cellulitis in her armpit and concerns for an abscess. She is febrile and tachycardic therefore we will proceed with a septic labs including a lactic and 3 blood cultures, and obtain a chest x-ray. 1 L of fluids has been ordered for the patient at this time as well as Tylenol. Assuming labs and x-ray within normal limits we will attempt to drain the abscess and treat the patient's cellulitis with oral antibiotics. 1615 - patient's chest x-ray did not demonstrate any acute abnormalities. Lab work was significant for hypokalemia of 3.0 and elevated white count of 13.7. EKG showed sinus tachycardia without any other acute abnormalities. Lactic was 2.1. Patient is agreeable with admission for IV antibiotics to wait for the blood cultures to result. We will start her on clindamycin and vancomycin and give her an additional liter of fluids while awaiting hospital admission. 1650 - wound was incised and cultures were sent. Patient has been accepted by the hospitalist at this time for IV antibiotics and monitoring of blood cultures. Urine tox screen will be run. - Medical Records Medical records reviewed: Yes I reviewed the patient's medical records. - Lab Data Lab results reviewed: Yes I reviewed the patient's lab results. Result diagrams: 01/18/19 15:21 01/18/19 15:21 Lab Results 01/18/19 01/18/19 01/18/19 Range/Units 15:21 15:21 15:21 WBC 13.7 H (4.3-11.1) K/mcL RBC 4.68 (3.82-4.97) M/mcL Hgb 13.5 (11.5-15.4) g/dL Hct 40.2 (35.3-44.9) % MCV 85.9 (83.0-100.0) fL MCH 28.8 (28.0-33.3) pg MCHC 33.6 (31.6-35.5) g/dL RDW 12.3 (11.5-14.5) % Plt Count 131 L (140-400) K/mcL MPV 11.9 (9.4-12.4) fL Immature Gran % 0.7 (0-4) % Seg Neutrophils % 82.7 % Lymphocytes % 7.1 % Monocytes % 9.0 % Eosinophils % 0.4 % Basophils % 0.1 % Neutrophils # 11.3 H (1.6-8.9) K/mcL Lymphocytes # 1.0 (0.6-4.6) K/mcL Monocytes # 1.2 (0.0-1.3) K/mcL Eosinophils # 0.1 (0.0-0.6) K/mcL Basophils # 0.0 (0.0-0.2) K/mcL Sodium 132 L (136-145) mEq/L Potassium 3.0 L (3.5-5.1) mEq/L Chloride 96 L (98-107) mEq/L Carbon Dioxide 27 (23-29) mEq/L BUN 6 (6-20) mg/dL Creatinine 0.58 L (0.60-1.20) mg/dL Est GFR ( Amer) > 60 (> 60) Est GFR (Non-Af Amer) > 60 (> 60) BUN/Creatinine Ratio 10 (6-26) Glucose 90 (70-105) mg/dL Calculated Osmolality 271 L (280-300) Lactic Acid 2.1 (0.5-2.2) mmol/L Calcium 8.9 (8.6-10.3) mg/dL - Radiology Data Radiology results reviewed: Yes I reviewed the patient's radiology results. - EKG Data EKG #1 EKG attestation: Yes I reviewed and interpreted this EKG. EKG results narrative: EKG obtained at 16:01 on 01/18/2019 Heart rate 10 8 bpm, ND interval 149, QRS duration 79, QT 36, QTC 411 Sinus tachycardia without any acute ST segment elevations or depressions. No acute T-wave abnormalities. Previous EKG dated 09/21/2018 demonstrates sinus tachycardia with only reversal, otherwise no acute changes.
[2019-01-18] MEDS ORDERED: Acetaminophen 325 MG TABLET PO ONE (15:31)
[2019-01-18 15:47] LABS: Basophils % 0.1 %; Eosinophils # 0.1 K/mcL (0.0-0.6); Eosinophils % 0.4 %; Hematocrit 40.2 % (35.3-44.9); Hemoglobin 13.5 g/dL (11.5-15.4); Immature Granulocytes % 0.7 % (0-4); Lymphocytes % 7.1 %; Mean Corpuscular HGB Conc 33.6 g/dL (31.6-35.5); Mean Corpuscular Hemoglobin 28.8 pg (28.0-33.3); Mean Corpuscular Volume 85.9 fL (83.0-100.0); Mean Platelet Volume 11.9 fL (9.4-12.4); Monocytes # 1.2 K/mcL (0.0-1.3); Neutrophils # 11.3 K/mcL (1.6-8.9); Platelet Count 131 K/mcL (140-400); Red Blood Count 4.68 M/mcL (3.82-4.97); Red Cell Distribution Width 12.3 % (11.5-14.5); Segmented Neutrophils % 82.7 %; White Blood Count 13.7 K/mcL (4.3-11.1)
--- NOTE | 2019-01-18 15:56 | Emergency Department Note ---
Disposition Clinical Impression: Cellulitis Qualifiers: Site of cellulitis: extremity Site of cellulitis of extremity: axilla Laterality: right Qualified Code(s): L03.111 - Cellulitis of right axilla Sepsis Qualifiers: Sepsis type: sepsis due to unspecified organism Qualified Code(s): A41.9 - Sepsis, unspecified organism Disposition: Admitted As Inpatient Condition: Serious Time of Disposition: 16:32 General Adult HPI - General Chief complaint: ED Skin/Abscess/Foreign Body Stated complaint: "Cellulitis"/abscess under arm Time Seen by Provider: 01/18/19 14:48 Source: patient, family Mode of arrival: ambulatory Limitations: no limitations - History of Present Illness Pain Scale: 8 - Related Data Home Medications Medication Instructions Recorded Confirmed No Known Home Drugs 01/18/19 01/18/19 Allergies Allergy/AdvReac Type Severity Reaction Status Date / Time Amoxicillin [From Augmentin] AdvReac Seizure Verified 09/05/17 17:21 clavulanic acid AdvReac Seizure Verified 09/05/17 17:21 [From Augmentin] Constitutional: Reports: chills. Denies: weakness Cardiovascular: Reports: dyspnea on exertion. Denies: chest pain, palpitations Respiratory: Reports: cough, dyspnea, wheezes. Denies: hemoptysis, sputum production Gastrointestinal: Denies: abdominal pain, nausea, vomiting, diarrhea Genitourinary: Denies: dysuria, hematuria Musculoskeletal: Denies: back pain, neck pain Integumentary: Reports: rash, lesions Neurological: Denies: headache Past Medical History - Past Medical History Medical history: Reports: hepatitis, other Psychiatric history: Reports: anxiety, depression, panic disorder [employer] history: Reports: no [employer] history - Social History Smoking Status: Current every day smoker Smokeless Tobacco Status: No Alcohol use: Reports: none Drug use: Reports: marijuana, methamphetamine, IV Drug Use, prescription drug abuse, other Physical Exam - General Limitations: no limitations General appearance: alert, in distress (mild) Course Vital Signs Temperature 100.9 F H 01/18/19 14:40 Pulse Rate 130 01/18/19 14:40 Respiratory Rate 20 01/18/19 14:40 Blood Pressure 133/73 01/18/19 14:40 O2 Sat by Pulse Oximetry 100 01/18/19 14:40 Temperature 101.8 F H 01/18/19 16:16 Pulse Rate 129 06/21/19 16:16 Respiratory Rate 22 01/18/19 16:16 Blood Pressure 133/88 01/18/19 16:16 O2 Sat by Pulse Oximetry 98 01/18/19 16:16 Oxygen Delivery Oxygen Delivery Room Air Medical Decision Making - Lab Data Result diagrams: 01/18/19 15:21 01/18/19 15:21 Lab Results 01/18/19 01/18/19 01/18/19 Range/Units 15:21 15:21 15:21 WBC 13.7 H (4.3-11.1) K/mcL RBC 4.68 (3.82-4.97) M/mcL Hgb 13.5 (11.5-15.4) g/dL Hct 40.2 (35.3-44.9) % MCV 85.9 (83.0-100.0) fL MCH 28.8 (28.0-33.3) pg MCHC 33.6 (31.6-35.5) g/dL RDW 12.3 (11.5-14.5) % Plt Count 131 L (140-400) K/mcL MPV 11.9 (9.4-12.4) fL Immature Gran % 0.7 (0-4) % Seg Neutrophils % 82.7 % Lymphocytes % 7.1 % Monocytes % 9.0 % Eosinophils % 0.4 % Basophils % 0.1 % Neutrophils # 11.3 H (1.6-8.9) K/mcL Lymphocytes # 1.0 (0.6-4.6) K/mcL Monocytes # 1.2 (0.0-1.3) K/mcL Eosinophils # 0.1 (0.0-0.6) K/mcL Basophils # 0.0 (0.0-0.2) K/mcL Sodium 132 L (136-145) mEq/L Potassium 3.0 L (3.5-5.1) mEq/L Chloride 96 L (98-107) mEq/L Carbon Dioxide 27 (23-29) mEq/L BUN 6 (6-20) mg/dL Creatinine 0.58 L (0.60-1.20) mg/dL Est GFR ( Amer) > 60 (> 60) Est GFR (Non-Af Amer) > 60 (> 60) BUN/Creatinine Ratio 10 (6-26) Glucose 90 (70-105) mg/dL Calculated Osmolality 271 L (280-300) Lactic Acid 2.1 (0.5-2.2) mmol/L Calcium 8.9 (8.6-10.3) mg/dL Critical Care Time Critical Care Time: Yes Total Critical Care Time: 35 Attestation: Critical care performed: Time is exclusive of separately billable procedures. Time includes: direct patient care, patient reassessment, coordination of patient care, interpretation of data (laboratory data, radiology data, and respiratory data), review of patient's medical records, medical consultation and documentation of patient care. Procedures included in critical care time: Procedures excluded from critical care time: Attestation Statement - Attestation Attestation: I examined this patient and my medical decision-making was reviewed with the Resident Physician. I agree with the documented findings, disposition and treatment plan as described except to the extent set forth below. Patient presents to the ED with a chief complaint of an abscess. More painful. Draining pus. Patient also states she has had a fever. And chest pain. P atient no distress on exam. I do not appreciate a murmur. She does have a small pustule in the axilla that she is actively expressing purulent material from. Plan. I&D. Labs. Cultures 3. Patient meets sepsis criteria with leukocytosis, tachycardia, and fever. Certainly broad-spectrum antibiotics. Patient will be admitted. Blood cultures drawn 3 since she is having chest pain and a fever to evaluate for endocarditis. I&D performed by Dr. Wells with my supervision. Admitted to medicine. Chest X-Ray 01/18/19 15:02 IMPRESSION: No acute cardiopulmonary process. D/ / 01/18/2019 15:25:28 Garrett West MD / jany Interpreting Provider: Garrett West MD
[2019-01-18 16:02] LABS: BUN/Creatinine Ratio 10 (6-26); Blood Urea Nitrogen 6 mg/dL (6-20); Calcium 8.9 mg/dL (8.6-10.3); Carbon Dioxide 27 mEq/L (23-29); Chloride 96 mEq/L (98-107); Glucose 90 mg/dL (70-105); Osmolality,Calculated 271 (280-300); Sodium 132 mEq/L (136-145); eGFR For African Americans > 60 (> 60); eGFR For Non-African Americans > 60 (> 60)
[2019-01-18] MEDS ORDERED: Clindamycin 600 MG/50 ML 600 MG/50 ML IV.SOLN IVPB STA (16:15)
[2019-01-18] MEDS ORDERED: Ibuprofen 600 MG TABLET PO ONE (16:17)
[2019-01-18] MEDS ORDERED: Ondansetron 4 MG/2 ML VIAL IVP PRN (16:52)
[2019-01-18] MEDS ORDERED: Naloxone 0.4 MG/ML INJ IVP PRN (16:52)
[2019-01-18] MEDS ORDERED: Ketorolac 30 MG/ML VIAL IVP PRN (16:52)
[2019-01-18] MEDS ORDERED: Ketorolac 15 MG/ML VIAL IVP PRN (16:52)
[2019-01-18] MEDS ORDERED: Acetaminophen 325 MG TABLET PO PRN (16:54)
--- NOTE | 2019-01-18 17:21 | Internal Med History&Physical ---
Date of Encounter: 01/18/19 Time of Encounter: 17:00 Internal Medicine - H&P: HPI Chief complaint: R armpit swelling History of present illness: Ms. Chavez is a 28 year old female with history of IV drug use, hep C, who presented to the ED with 3 day history of R armpit swelling. She initially noted a bump and has been picking on it since then. Today, she found that it was grown in size and also became red and painful hence decided to come to the ED for further evaluation. Denies any fever/chills, nausea/vomiting, chest pain, palpitation, or LE swelling. She does state that she had been short of breath for a few months now. No sputum production however. No joint pain or rash. In the ED, she was febrile at 100.9, tachycardic, but with normal BP and O2 satu ration. Labwork showed leukocytosis of 13.7, hypokalemia 3, but with normal lactic acid. Chest x-ray did not show any acute cardiopulmonary process. I&D was performed in the ED and pt was started on IV Vanc/clindamycin. She was admitted for further management. Past Med Surg Social Fam HX - Past Medical History Attestation: Yes The following information was validated with the patient. Medical history: hepatitis, other Additional medical history: psoriasis, syncope from unknown cause, scoliosis Psychiatric history: anxiety, depression, panic disorder - Past Surgical History Additional surgical history: wisdom tooth removal - Social History Smoking Status: Current every day smoker Smokeless Tobacco Status: No Alcohol use: none Drug use: marijuana, methamphetamine, IV Drug Use, prescription drug abuse, other - Additional Family History Additional family history: Unsure about her family history of medical disease Internal Medicine - H&P: Meds No Known Home Drugs 01/18/19 [History] 3 Allergy/AdvReac Type Severity Reaction Status Date / Time Amoxicillin [From Augmentin] AdvReac Seizure Verified 09/05/17 17:21 clavulanic acid AdvReac Seizure Verified 09/05/17 17:21 [From Augmentin] All Systems PM: A 10-system review of systems was performed and is negative for pertinent findings except as documented above in the HPI. - Constitutional Vitals: Temp Pulse Resp BP Pulse Ox 101.8 F H 129 22 133/88 98 01/18/19 16:16 01/18/19 16:16 01/18/19 16:16 01/18/19 16:16 01/18/19 16:16 Exam: General: Alert and oriented, not in acute distress. HEENT:EOMI, pupils equal, round and reactive. Cardiovascular:Normal S1 & S2, No JVD. Pulse regular but tachycardic. No murmur appreciated Lungs: diffuse wheezing bilaterally Abdomen:Soft, non-tender, no rigidity. Extremities: R armpit at 3 oclock position has small area of raised lesion that is draining purulent discharge Neurological:Normal cognition and motor skills. Non-focal Skin: Warm and dry Pulses:Carotid and radial pulses normal +2. Rest of the physical exam is non contributory Internal Med - H&P Results - Labs CBC & Chem 7: 01/18/19 15:21 01/18/19 15:21 Labs: Short CBC 01/18/19 Range/Units 15:21 WBC 13.7 H (4.3-11.1) K/mcL Hgb 13.5 (11.5-15.4) g/dL Hct 40.2 (35.3-44.9) % Plt Count 131 L (140-400) K/mcL Neutrophils # 11.3 H (1.6-8.9) K/mcL BMP 01/18/19 15:21 Sodium 132 L Potassium 3.0 L Chloride 96 L Carbon Dioxide 27 BUN 6 Creatinine 0.58 L Glucose 90 Calcium 8.9 - Impressions ITS Impressions Chest X-Ray 01/18/19 15:02 IMPRESSION: No acute cardiopulmonary process. D/ / 01/18/2019 15:25:28 Garrett West MD / jany Interpreting Provider: Garrett West MD - Assessment and Plan (1) Sepsis Current Visit: Yes Status: Acute Assessment and plan: presented with tachycardia, fever, and leukocytosis likely due to R armpit abscess that was drained in the ED lactic acid normal follow up on blood cultures abx as below Qualifiers: Sepsis type: sepsis due to unspecified organism Qualified Code(s): A41.9 - Sepsis, unspecified organism (2) Abscess Current Visit: Yes Status: Acute Assessment and plan: s/p I&D in the ED, wound culture sent given IV Vanc/clinda, will switch to Vanc/cefepime follow up on cultures wound care consult for dressing (3) Bronchitis Current Visit: Yes Status: Acute Assessment and plan: Has diffuse wheezing/rhonchi on exam, CXR -ve for any consolidative changes no history of asthma/COPD pt is a chronic smoker however. Counseling provided will treat with scheduled bronchodilators and monitor for response (4) IVDU (intravenous drug user) Current Visit: Yes Status: Acute Assessment and plan: urine tox screen pending if pt demonstrates any signs of withdrawal, will use SL buprenorphine 4mg and reassess in an hr (5) DVT prophylaxis Current Visit: No Status: Acute Assessment and plan: EPCD - Time Spent With Patient Total time spent is greater than 50% in coordination of care (as documented) at patient's floor/unit and/or counseling patient: 25 - 35 minutes
[2019-01-18] MEDS ORDERED: *HR* Buprenorphine HCl 2 MG SUBLINGUAL TABLET SL PRN (17:36)
[2019-01-18 17:47] LABS: Amphetamine Screen,Urine Negative ng/mL (Cutoff=1000); Barbiturate Screen,Urine Negative ng/mL (Cutoff=200); Benzodiazepines Screen,Urine Positive ng/mL (Cutoff=200); Cannabinoid Screen,Urine Positive ng/mL (Cutoff = 50); Cocaine Screen,Urine Negative ng/mL (Cutoff= 300); Opiate Screen,Urine Positive ng/mL (Cutoff=300); Phencyclidine Screen,Urine Negative ng/mL (Cutoff=25)
[2019-01-18] MEDS: Cefepime HCl 2,000 MG in Water for inj. (sterile) 20 ML 20 ML IVP SCH (18:55)
[2019-01-18] MEDS: 0.9 % Sodium Chloride 1,000 ML IVC SCH (18:56)
[2019-01-18] MEDS: Ipratropium/Albuterol Neb 3 ML IH SCH (19:51)
[2019-01-18] MEDS ORDERED: Haloperidol Lactate 5 MG/ML VIAL IVP ONE (20:45)
[2019-01-18] MEDS ORDERED: *HR* Promethazine 25 MG/ML VIAL IVP PRN (20:45)
[2019-01-19] MEDS: Ipratropium/Albuterol Neb 3 ML IH SCH ×4 (00:10→11:00)
--- NOTE | 2019-01-19 00:30 | Event Note ---
Date of Encounter: 01/18/19 Time of Encounter: 20:26 Alerted by pts. nurse MEGAN Ochoa that the patient had just been admitted and was not yelling at staff and threatening to about her IV to go outside and smoke. Security called. I went to see the pt. immediately who was pacing the room and crying. Pt. was pulling at her hair stating that she wanted to go outside and smoke. I informed the pt. that this was a non-smoking facility, that she had IV access, that she was not permitted to leave the unit to smoke, and that she was an IV drug user with a positive tox screen for opiates, benzodiazepines, and marijuana. Pt. is not currently suicidal but is withdrawing from the heroin and Xanax that she took, so pink slip is inappropriate at this time. I gave the pt. a mini mental exam which she passed, so DIH is inappropriate at this time. I told the pt. that if she removed her IV access to leave to smoke she was leaving AMA of her own choosing and would have to return to the ED for re-admission if she chose to. Pt. continued to yell at myself, staff, and security as she called her boyfriend on her phone. 1 mg IVP Haldol and 12.5 mg IVP Phenergan ordered to address the pts. agitation and aggression. Octaviater ordered. Nurse instructed to continue monitoring this pt. very closely and alert me immediately of any adverse changes or if she believed pts. boyfriend was providing the pt. w/narcotics.
[2019-01-19] MEDS: 0.9 % Sodium Chloride 1,000 ML IVC SCH (02:09)
[2019-01-19] MEDS: Cefepime HCl 2,000 MG in Water for inj. (sterile) 20 ML 20 ML IVP SCH ×2 (02:09→09:21)
[2019-01-19 04:57] LABS: Basophils % 0.2 %; Eosinophils # 0.1 K/mcL (0.0-0.6); Eosinophils % 0.9 %; Hematocrit 34.6 % (35.3-44.9); Immature Granulocytes % 1.2 % (0-4); Lymphocytes % 7.3 %; Mean Corpuscular HGB Conc 32.9 g/dL (31.6-35.5); Mean Corpuscular Hemoglobin 28.7 pg (28.0-33.3); Mean Corpuscular Volume 87.2 fL (83.0-100.0); Mean Platelet Volume 11.6 fL (9.4-12.4); Monocytes # 1.6 K/mcL (0.0-1.3); Monocytes % 11.2 %; Platelet Count 136 K/mcL (140-400); Red Blood Count 3.97 M/mcL (3.82-4.97); Red Cell Distribution Width 12.4 % (11.5-14.5); Segmented Neutrophils % 79.2 %; White Blood Count 13.9 K/mcL (4.3-11.1)
[2019-01-19 04:58] LABS: BUN/Creatinine Ratio 9 (6-26); Blood Urea Nitrogen 5 mg/dL (6-20); Carbon Dioxide 23 mEq/L (23-29); Chloride 105 mEq/L (98-107); Glucose 168 mg/dL (70-105); Hemoglobin 11.4 g/dL (11.5-15.4); Magnesium 1.7 mg/dL (1.6-2.6); Osmolality,Calculated 281 (280-300); Potassium 3.3 mEq/L (3.5-5.1); Sodium 135 mEq/L (136-145); eGFR For African Americans > 60 (> 60); eGFR For Non-African Americans > 60 (> 60)
[2019-01-19 10:38] VITALS: BP 104/67
--- NOTE | 2019-01-19 10:51 | Internal Med Progress Note ---
Hospitalist Progress Note - Encounter Date of Encounter: 01/19/19 Time of Encounter: 08:30 - Subjective Interval History: HR and temp improved overnight. OTher than mild discomfort over R armpit, no new complaints. - Exam Vitals: Temp Pulse Resp BP Pulse Ox 98.8 F 90 14 104/67 96 01/19/19 10:36 01/19/19 10:36 01/19/19 10:36 01/19/19 10:36 01/19/19 10:36 Exam: General: Alert and oriented, not in acute distress. Cardiovascular:Normal S1 & S2, No JVD. Pulse regular with normal rate. No murmur appreciated Lungs: bilateral scattered wheezing Abdomen:Soft, non-tender, no rigidity. Extremities: R armpit at 3 oclock position has small area of raised lesion that is draining purulent discharge Neurological:Normal cognition and motor skills. Non-focal - Assessment and Plan (1) Sepsis Current Visit: Yes Status: Acute Assessment and Plan: presented with tachycardia, fever, and leukocytosis likely due to R armpit abscess that was drained in the ED lactic acid normal follow up on blood/wound cultures abx as below (2) Abscess Current Visit: Yes Status: Acute Assessment and Plan: s/p I&D in the ED, wound culture sent given IV Vanc/clinda, will switch to Vanc/cefepime follow up on cultures wound care consult for dressing (3) Bronchitis Current Visit: Yes Status: Acute Assessment and Plan: Has diffuse wheezing/rhonchi on exam, CXR -ve for any consolidative changes no history of asthma/COPD pt is a chronic smoker however. Counseling provided improving with bronchodilators, continue (4) IVDU (intravenous drug user) Current Visit: Yes Status: Acute Assessment and Plan: urine tox screen pending if pt demonstrates any signs of withdrawal, will use SL buprenorphine 4mg and reassess in an hr (5) DVT prophylaxis Current Visit: No Status: Acute Assessment and Plan: EPCD - Time Spent with Patient Total time spent is greater than 50% in coordination of care (as documented) at patient's floor/unit and/or counseling patient: 25 - 35 minutes Plan of Care Discussed with: patient (discussed with RN) Internal Medicine: Result - Labs CBC & Chem 7: 01/19/19 03:41 01/19/19 03:41 Labs: Short CBC 01/18/19 01/19/19 Range/Units 15:21 03:41 WBC 13.7 H 13.9 H (4.3-11.1) K/mcL Hgb 13.5 11.4 L D (11.5-15.4) g/dL Hct 40.2 34.6 L (35.3-44.9) % Plt Count 131 L 136 L (140-400) K/mcL Neutrophils # 11.3 H 11.0 H (1.6-8.9) K/mcL BMP 01/18/19 01/19/19 15:21 03:41 Sodium 132 L 135 L Potassium 3.0 L 3.3 L Chloride 96 L 105 Carbon Dioxide 27 23 BUN 6 5 L Creatinine 0.58 L 0.58 L Glucose 90 168 H Calcium 8.9 8.0 L - Impressions Impressions Chest X-Ray 01/18/19 15:02 IMPRESSION: No acute cardiopulmonary process. D/ / 01/18/2019 15:25:28 Garrett West MD / jany Interpreting Provider: Garrett West MD Consult Discharge Plan - Plan Referrals: NONE,PCP [Primary Care Provider] - (1) Sepsis Qualifiers: Sepsis type: sepsis due to unspecified organism Qualified Code(s): A41.9 - Sepsis, unspecified organism
--- NOTE | 2019-01-19 12:07 | Discharge Summary ---
- NOTES TO OUTPATIENT PROVIDER Notes to Outpatient Provider: Left AMA. Given PO Doxycycline 100mg BID for 7 days. Orders not resulted at time of discharge: Pending orders 01/18/19 15:21 Culture,Blood [BC] Stat 01/18/19 16:46 Culture,Anaerobic [RM] Stat Culture,Wound [RM] Stat 01/20/19 04:00 Basic Metabolic Panel AM 0400 Complete Blood Count [HEME] AM 0400 Date of Encounter: 01/19/19 Time of Encounter: 10:30 - Discharge Diagnosis (1) Sepsis Priority: Primary Status: Acute Qualifiers: Sepsis type: sepsis due to unspecified organism Qualified Code(s): A41.9 - Sepsis, unspecified organism (2) Abscess Priority: Secondary Status: Acute (3) Bronchitis Priority: Secondary Status: Acute (4) IVDU (intravenous drug user) Priority: Secondary Status: Acute (5) DVT prophylaxis Priority: Secondary Status: Acute Hospital course: Ms. Chavez is a 28 year old female with history of IV drug use, hep C, who was admitted for sepsis secondary to R armpit abscess. I&D done in the ED and prelim wound culture was growing MRSA. Pt's fever and tachycardia subsided after IV VAnc/cefepime but continued to have leukocytosis. Pt however wanted to leave AMA while understanding the risk of worsening sepsis and potential . I also informed her that I could use Subutex (which is ordered in fact) if she is concerned for withdrawal but claimed that it wasn't the reason for her leaving and did not want to elaborate. She was given a script for Doxycyclne for 7 days and was advised to follow up with PCP but doubtful that she will. Discharge discussed with: patient, nurse - Time Spent with Patient Total time spent providing and/or coordinating discharge services: 33 mins - Discharge Medications Prescriptions: New Doxycycline 100 mg PO BID 7 Days #14 capsule Home Medications: Doxycycline 100 mg PO BID 7 Days #14 capsule 01/19/19 [Rx] Allergies/Adverse Reactions: Allergy/AdvReac Type Severity Reaction Status Date / Time Amoxicillin [From Augmentin] AdvReac Seizure Verified 09/05/17 17:21 clavulanic acid AdvReac Seizure Verified 09/05/17 17:21 [From Augmentin] Date of admission: 01/18/19 17:00 Primary care physician: PCP NONE Consults: 01/18/19 17:29 Consult to Wound Care [CONS] Routine Reason for Consult: R armpit abscess s/p I&D Call Completed: Yes - Constitutional Vitals: Temp Pulse Resp BP Pulse Ox 98.8 F 90 16 104/67 96 01/19/19 10:36 01/19/19 10:36 01/19/19 11:00 01/19/19 10:36 01/19/19 11:00 Exam: General: Alert and oriented, not in acute distress. Cardiovascular:Normal S1 & S2, No JVD. Pulse regular with normal rate. No murmur appreciated Lungs: bilateral scattered wheezing Abdomen:Soft, non-tender, no rigidity. Extremities: R armpit dressing c/d/i Neurological:Normal cognition and motor skills. Non-focal - Patient Status Disposition: Left Against Medical Advice Condition: Serious - Discharge Instructions Instructions: Sepsis (DC) Follow Up With: NONE,PCP [Primary Care Provider] -
--- NOTE | 2019-01-19 13:58 | Electrocardiograph Report ---
[address] [address] Test Date: 2019-01-18 Pat Name: Ladonna Chavez Department: EXAM1 Room: 3A22 Gender: F Measurement Analyst: : 1990 Requested By: Nicole Wells Order Number: [id number] Reading MD: Juan Antonio Hargrove Measurements Intervals [place] Rate: 108 P: 76 NE: 149 QRS: 93 QRSD: 79 T: 53 QT: 306 QTc: 411 Interpretive Statements Sinus tachycardia Borderline right axis deviation Electronically Signed On 01-19-2019 13:56:35 EDT by Juan Antonio Hargrove
== END 2019-01-19 12:42 | disposition left against medical advice (07) | DRG 720 ==
LOC: EMEROOARM 14:34 → 3ANU 14:34 → SUATTDRO 17:00 → OBSVTOIN 17:00 → 3ANU 18:43
PROVIDERS: ADMIT Internal Medicine Nephrology; ATTEND Internal Medicine